=== PATIENT | female | born 1930 | race African-American/Black ===

== ENCOUNTER 2017-01-17 17:35 | Inpatient (IN) | payer MEDICARE ==
[~2017-01-17] VITALS: Ht 165.1 cm; Wt 56.2 kg
[~2017-01-17 17:35] MED LIST: ACET500T68 PO; ACET650S19 PEG; ASPI-482 PO; CEFP200T PO; CEPH-264 PO; CHOL10003 PO; CYAN10005 PO; DIVA125C PO; HYDR-2678 PO; HYDR-971 PO; LEVE250T30 PO; MULT1TAB52 PO; PANT40TA5 PO; POLY17PO5 PO; POTA20TA4 PO; RISP0.2519 PO; SENN8.6T99 PO; SIMV20TA3 PO; VALA500T5 PO
[2017-01-17 18:09] LABS: BILIRUBIN,URINE NEGATIVE (NEG); GLUCOSE,URINE NEGATIVE (NEG); NITRITE,URINE NEGATIVE (NEG); PH,URINE 7.5; PROTEIN,URINE NEGATIVE (NEG-TRACE)
[2017-01-17 18:17] LABS: BACTERIA,URINE MANY /HPF (0-FEW); SQUAMOUS EPITHELIAL CELL,UR MOD /LPF; WBC,URINE >40 /HPF (0-4)
[2017-01-17] MEDS ORDERED: ACETAMINOPHEN 500 MG TABLET PO ONE (18:30)
[2017-01-17] MEDS ORDERED: IV NORMAL SALINE 1000ML BAG 1,000 ML IV ONE (18:30)
[2017-01-17] MEDS ORDERED: ACETAMINOPHEN 650 MG SUPP.RECT. PR ONE (18:30)
[2017-01-17 19:07] LABS: BASO # 0.1 x10^3/uL (0.0-0.2); BASO % 1 % (0-3); EOS % 0 % (0-3); HEMATOCRIT 34.7 % (36.0-47.0); HEMOGLOBIN 11.2 g/dL (12.0-15.5); LYMPH # 1.4 x10^3/uL (1.0-4.8); LYMPH % 11 % (24-48); MEAN CORPUSCULAR HEMOGLOBIN 29 pg (25-35); MEAN CORPUSCULAR HGB CONC 32 g/dL (31-37); MEAN CORPUSCULAR VOLUME 89 fL (79-100); MONO % 3 % (0-9); NEUT % 86 % (31-73); PLATELET COUNT 156 x10^3/uL (140-400); RED BLOOD COUNT 3.91 x10^6/uL (3.50-5.40); RED CELL DISTRIBUTION WIDTH 15.9 % (11.5-14.5); WHITE BLOOD COUNT 12.8 x10^3/uL (4.0-11.0)
[2017-01-17] MEDS ORDERED: CEFTRIAXONE 1GM IVPB FOR OMNI 50 ML IV ONE (19:15)
[2017-01-17 19:24] LABS: CALCIUM 9.1 mg/dL (8.5-10.1); CREATININE 0.7 mg/dL (0.6-1.0); GFR 96.5; POTASSIUM 4.2 mmol/L (3.5-5.1)
[2017-01-17 19:26] LABS: OBC FLU VALID
[2017-01-17] MEDS ORDERED: ONDANSETRON PF 4 MG/2 ML VIAL. IV PRN (19:30)
[2017-01-17] MEDS ORDERED: IV DEXTROSE 5 %-0.2 % NACL 1,000 ML IV ONE (19:30)
[2017-01-17] MEDS ORDERED: VANCOMYCIN 1.5 GM in IV NORMAL SALINE 500ML BAG 500 ML IV ONE (19:30)
[2017-01-17 19:31] LABS: PLT ESTIMATE ADEQUATE (ADEQUATE)
[2017-01-17] MEDS ORDERED: OSELTAMIVIR 75 MG CAPSULE PO ONE (20:00)
[2017-01-17] MEDS: IV DEXTROSE 5 %-0.2 % NACL 1,000 ML IV SCH (22:00)
[2017-01-17] MEDS ORDERED: HYDROCODONE/APAP 5/325MG TABLET. PO PRN (22:00)
--- NOTE | 2017-01-17 22:13 | PHYS DOC ---
Past Medical History Past Medical History: Constipation, Dementia, GERD, Sickle Cell Disease, Other Additional Past Medical Histor: Shingles Past Surgical History: Hip Replacement, Other Additional Past Surgical Histo: Eye sx, gallstones, LT HIP FX Alcohol Use: None Drug Use: None Adult General Chief Complaint Chief Complaint: FEVER HPI HPI 86-year-old female who presents from assisted living facility for fever as well as an episode of tremors noted earlier today by staff. Upon arrival, the patient is febrile with a fever of 101.9. She has been treated for ongoing UTI. Patient is nonverbal at this time and not able to provide any history. She has history of dementia and is is her baseline per family member at bedside. Review of Systems Review of Systems 10 point review of systems unable to be obtained secondary to her baseline mental status Current Medications Current Medications Current Medications Medications (Trade) Dose Ordered Sig/Carolyne Start Time Stop Time Status Last Admin Dose Admin Acetaminophen (Tylenol) 650 mg 1X ONCE 01/17/17 18:30 01/17/17 18:31 DC 01/17/17 18:30 650 MG Acetaminophen 1000 mg 1,000 mg 1X ONCE 01/17/17 18:30 01/17/17 18:31 Cancel Sodium Chloride (Iv Sodium Chloride 0.9% 1000ml Bag) 1,000 ml @ 1,000 mls/hr 1X ONCE 01/17/17 18:30 01/17/17 19:29 DC 01/17/17 18:30 1,000 MLS/HR Allergies Allergies Allergies Coded Allergies Type Severity Reaction Last Updated Verified Penicillins Allergy Intermediate Rash 01/30/16 Yes I S O L A T I O N *CONTACT* Allergy Unknown 08/07/16 Yes Physical Exam Physical Exam Constitutional: Well developed, cachetic, no acute distress, non-toxic appearance. [] HENT: Normocephalic, atraumatic, bilateral external ears normal, oropharynx moist, no oral exudates, nose normal. [] Eyes: PERRLA, EOMI, conjunctiva normal, no discharge. [] Neck: Normal range of motion, no tenderness, supple, no stridor. [] Cardiovascular:Heart rate tachycardic with regular rhythm, no murmur [] Lungs & Thorax: Bilateral breath sounds clear to auscultation [] Abdomen: Bowel sounds normal, soft, no tenderness, no masses, no pulsatile masses. [] Skin: Warm, dry, no erythema, no rash. [] Back: No tenderness, no CVA tenderness. [] Extremities: No tenderness, no cyanosis, no clubbing, ROM intact, no edema. [] Neurologic: Nonverbal, no focal deficits noted. [] Psychologic: Affect normal, judgement normal, mood normal. [] Current Patient Data Vital Signs Vital Signs Date Time Temp Pulse Resp B/P Pulse Ox O2 Delivery O2 Flow Rate FiO2 01/17/17 18:11 101.6 110 24 157/76 91 Room Air 101.6 Lab Values Laboratory Tests Test 01/17/17 17:45 01/17/17 18:50 01/17/17 19:00 Urine Collection Type U cath Urine Color Yellow Urine Clarity Clear Urine pH 7.5 Urine Specific [place] 1.010 Urine Protein Negativemg/dL (NEG-TRACE) Urine Glucose (UA) Negativemg/dL (NEG) Urine Ketones (Stick) Negativemg/dL (NEG) Urine Blood Small (NEG) Urine Nitrite Negative (NEG) Urine Bilirubin Negative (NEG) Urine Urobilinogen Dipstick 1.0mg/dL (0.2 mg/dL) Urine Leukocyte Esterase Large (NEG) Urine RBC 3-5/HPF (0-2) Urine WBC >40/HPF (0-4) Urine Squamous Epithelial Cells Mod/LPF Urine Bacteria Many/HPF (0-FEW) Influenza Type A Antigen Positive (NEGATIVE) Influenza Type B Antigen Negative (NEGATIVE) Lactic Acid Level 1.9mmol/L (0.4-2.0) White Blood Count 12.8x10^3/uL (4.0-11.0) H Red Blood Count 3.91x10^6/uL (3.50-5.40) Hemoglobin 11.2g/dL (12.0-15.5) L Hematocrit 34.7% (36.0-47.0) L Mean Corpuscular Volume 89fL (79-100) Mean Corpuscular Hemoglobin 29pg (25-35) Mean Corpuscular Hemoglobin Concent 32g/dL (31-37) Red Cell Distribution Width 15.9% (11.5-14.5) H Platelet Count 156x10^3/uL (140-400) Neutrophils (%) (Auto) 86% (31-73) H Lymphocytes (%) (Auto) 11% (24-48) L Monocytes (%) (Auto) 3% (0-9) Eosinophils (%) (Auto) 0% (0-3) Basophils (%) (Auto) 1% (0-3) Neutrophils # (Auto) 11.0x10^3uL (1.8-7.7) H Lymphocytes # (Auto) 1.4x10^3/uL (1.0-4.8) Monocytes # (Auto) 0.4x10^3/uL (0.0-1.1) Eosinophils # (Auto) 0.0x10^3/uL (0.0-0.7) Basophils # (Auto) 0.1x10^3/uL (0.0-0.2) Segmented Neutrophils % 71% (35-66) H Band Neutrophils % 20% (0-9) H Lymphocytes % 6% (24-48) L Monocytes % 3% (0-10) Platelet Estimate Adequate (ADEQUATE) Sodium Level 155mmol/L (136-145) H Potassium Level 4.2mmol/L (3.5-5.1) Chloride Level 116mmol/L (98-107) H Carbon Dioxide Level 30mmol/L (21-32) Anion Gap 9 (6-14) Blood Urea Nitrogen 10mg/dL (7-20) Creatinine 0.7mg/dL (0.6-1.0) Estimated GFR (Cockcroft-Gault) 96.5 Glucose Level 109mg/dL (70-99) H Calcium Level 9.1mg/dL (8.5-10.1) Troponin I Quantitative < 0.017ng/mL (0.000-0.055) Laboratory Tests 01/17/17 19:00 Laboratory Tests 01/17/17 19:00 EKG EKG EKG as interpreted by me shows a sinus tachycardia with a rate of 105 bpm. There is artifact seen on this EKG but no obvious ischemic findings seen. Radiology/Procedures Radiology/Procedures There is no obvious acute findings on portable one view of the chest as interpreted by me. There does appear to be some mediastinal widening that was present on previous films as well noted on 11/06/2016 Course & Med Decision Making Course & Med Decision Making Pertinent Labs and Imaging studies reviewed. (See chart for details) This 86-year-old female presented with fever and had a laboratory workup that's consistent with hypernatremia, UTI, and influenza A. Patient was placed on D5 quarter normal saline at 125 mL an hour per the hospitalist recommendation. Patient was additionally given multiple antibiotic doses per Dr. Lock's recommendation. Her influenza swabs are positive for influenza type A. Patient was given a dose of Tamiflu. Her urinalysis showed large amount of leukocyte esterase. She was admitted without incident. Dragon Disclaimer Dragon Disclaimer This electronic medical record was generated, in whole or in part, using a voice recognition dictation system. Departure Departure Impression: Primary Impression: Influenza A virus present Additional Impressions: Fever UTI (urinary tract infection) Disposition: ADMITTED INPATIENT Admitting Physician: Joo Lock Condition: STABLE Problem Qualifiers PRABHA GAMEZ DO Jan 17, 2017 22:13
[2017-01-17] MEDS ORDERED: IPRATRPIUM/ALBUTEROL 0.5/2.5MG 3 ML NEBU. NEB ONE (22:30)
[2017-01-17 23:12] VITALS: BP 145/78
[2017-01-18] MEDS: ACETAMINOPHEN 650 MG/20.3 ML SOLUTION. PEG PRN (00:09)
[2017-01-18] MEDS: ENOXAPARIN 40 MG/0.4 ML DISP.SYRIN. SQ SCH ×2 (00:11→22:23)
[2017-01-18 03:00] VITALS: BP 126/73
[2017-01-18] MEDS ORDERED: NITR100C62 PO (03:30)
[2017-01-18 07:00] VITALS: BP 112/71
[2017-01-18 07:01] LABS: CALCIUM 8.2 mg/dL (8.5-10.1); CREATININE 0.5 mg/dL (0.6-1.0); GFR 142.2; POTASSIUM 3.3 mmol/L (3.5-5.1)
[2017-01-18 07:04] LABS: BASO % 0 % (0-3); EOS % 0 % (0-3); HEMATOCRIT 31.1 % (36.0-47.0); HEMOGLOBIN 9.9 g/dL (12.0-15.5); LYMPH # 1.2 x10^3/uL (1.0-4.8); LYMPH % 8 % (24-48); MEAN CORPUSCULAR HEMOGLOBIN 29 pg (25-35); MEAN CORPUSCULAR HGB CONC 32 g/dL (31-37); MEAN CORPUSCULAR VOLUME 92 fL (79-100); MONO % 3 % (0-9); NEUT % 89 % (31-73); PLATELET COUNT 136 x10^3/uL (140-400); RED BLOOD COUNT 3.38 x10^6/uL (3.50-5.40); RED CELL DISTRIBUTION WIDTH 15.5 % (11.5-14.5); WHITE BLOOD COUNT 16.4 x10^3/uL (4.0-11.0)
[2017-01-18] MEDS: IPRATRPIUM/ALBUTEROL 0.5/2.5MG 3 ML NEBU. NEB SCH ×4 (07:04→18:14)
[2017-01-18] MEDS: IV DEXTROSE 5 %-0.2 % NACL 1,000 ML IV SCH ×2 (08:00→22:22)
--- NOTE | 2017-01-18 08:05 | RAD ---
Portable chest, 01/17/2017: History: Fever Comparison is made to a study from 11/16/2016. The patient is rotated to the right. The heart is within normal limits in size. There is tortuosity of the thoracic aorta. The pulmonary vascularity is normal. There is mild parenchymal scarring. No acute pulmonary infiltrate is seen. There is no evidence of pleural fluid. The bony structures are demineralized. Old healed rib fractures are present, more numerous on the left. There is an old healed left clavicular fracture. IMPRESSION: 1. Aortic ectasia. 2. No acute cardiopulmonary abnormality is detected.
--- NOTE | 2017-01-18 08:54 | EKG ---
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
[2017-01-18] MEDS: OSELTAMIVIR 30 MG CAPSULE PO SCH ×2 (09:21→22:22)
[2017-01-18] MEDS: POLYETHYLENE GLYCOL 3350 17 GM PACKET. PO SCH (09:24)
[2017-01-18] MEDS: DIVALPROEX SPRINKLES 125 MG CAPSULE. PO SCH ×2 (09:26→22:30)
[2017-01-18] MEDS: LEVETIRACETAM 250 MG TABLET. PO SCH ×2 (09:27→22:22)
[2017-01-18] MEDS: ASPIRIN ENTERIC COATED 81 MG TABLET.DR. PO SCH (09:28)
[2017-01-18] MEDS: HYDROCODONE/APAP 5/325MG TABLET. PO SCH ×3 (09:28→21:00)
[2017-01-18] MEDS: PANTOPRAZOLE 40 MG TABLET. PO SCH (09:29)
[2017-01-18] MEDS: CYANOCOBALAMIN (VITAMIN B-12) 1,000 MCG TABLET. PO SCH (09:30)
[2017-01-18] MEDS: MULTIVITAMIN with MINERAL TABLET. PO SCH (09:31)
[2017-01-18] MEDS: CHOLECALCIFEROL (VITAMIN D3) 1,000 UNIT TABLET PO SCH (09:32)
[2017-01-18] MEDS: SENNOSIDES 8.6 MG TABLET PO SCH (09:33)
--- NOTE | 2017-01-18 10:10 | PDOC ---
Provider Note Provider Note H&P dictated. #[id number] VICK KEYS MD Jan 18, 2017 10:09
[2017-01-18] MEDS ORDERED: POTASSIUM CHLORIDE 20 MEQ TABLET.ER. PO ONE ×2 (10:15→15:00)
[2017-01-18 10:53] VITALS: BP 113/71
--- NOTE | 2017-01-18 10:58 | HP ---
ADMIT DATE: 01/17/2017 LOCATION: 430. REASON FOR ADMISSION TO THE HOSPITAL: 1. Fever. 2. Influenza. 3. Hypernatremia. HISTORY OF PRESENT ILLNESS: The patient is an 86-year-old female patient from [facility]. She has a history of chronic dementia and she has been not feeling well yesterday. She has been shaking yesterday and she was sent to the Emergency Room. Fever of 102, influenza A was positive. She also had urinary tract infection, was treated with antibiotics as well as Tamiflu, was admitted to the hospital. Sodium was high at 155, was given IV fluids. PAST MEDICAL HISTORY: She has a history of sickle cell disease, dementia, arthritis, seizures, hypertension and hyperlipidemia. PAST SURGICAL HISTORY: Left hip replacement, shingles, gallstones. ALLERGIES: PENICILLIN. MEDICATIONS: At the senior care, aspirin 81 mg daily, vitamin D 1000 daily, B12 100 mcg daily, Depakote 125 mg twice a day, hydrocodone q. 6, Keppra 250 mg twice a day, multivitamin daily, Protonix 40 mg daily, MiraLax 17 grams daily, senna 8.6 daily. PERSONAL HISTORY: Has been at the senior care for the last 1 year. No history of recent smoking, alcohol or drug abuse. FAMILY HISTORY: Positive for hypertension. REVIEW OF SYSTEMS: The patient has dementia. PHYSICAL EXAMINATION: VITAL SIGNS: Temperature 102, pulse ____, respirations 22, blood pressure 145/76, 97% on 2 liters. HEENT: Head is atraumatic. Pupils equal. Oral cavity: No congestion. Dentures present. NECK: Supple. Thyroid not enlarged. JVD not elevated. CHEST: Symmetrical. CARDIOVASCULAR: S1, S2. LUNGS: Clear to auscultation. ABDOMEN: Soft. Bowel sounds present, no mass palpable. EXTERNAL GENITALIA: No Christie. RECTAL: Deferred. EXTREMITIES: No calf tenderness, no edema. The patient has an ulcer on the left heel, which is stage 2 and 3. She has been following at [facility]. NEUROLOGIC: The patient is awake, dementia, does not respond to verbal questions, moving upper extremities. LABORATORY DATA: White count is 13, hemoglobin 11, platelets 156. Electrolytes show sodium 155, potassium 4.2, chloride 116, bicarb 30, BUN 10, creatinine 0.7. Lactic acid 1.9. Troponin is negative. Urine shows more than 40 wbc's and large leukocyte esterase. Influenza A was positive on serology. Chest x-ray shows no acute abnormality. FINAL IMPRESSION: 1. Fever, possible influenza. 2. Urinary tract infection. 3. Hypernatremia. 4. Dementia. 5. Left heel ulcer stage 3, present on admission. 6. Protein-calorie malnutrition, moderate. 7. History of surgeries including hip fractures. PLAN: At this time, admit to hospital. The patient was started on Tamiflu and Levaquin for UTI. Cultures were sent and also DVT prophylaxis, wound care team to see, hydration with IV fluids, monitor electrolytes. VICK KEYS MD DR: NOAH/robbin JOB#: [id number] / [id number]
[2017-01-18 15:02] VITALS: BP 118/67
[2017-01-18] MEDS ORDERED: CEFTRIAXONE SODIUM 1 GM in IV NORMAL SALINE 50ML 50 ML IV SCH (19:00)
[2017-01-18 19:17] VITALS: BP 109/57
--- NOTE | 2017-01-18 21:48 | ACF ---
Admission Forms Criteria URINARY COMPLICATIONS Clinical Indications for Inpatient Care (Place 'X' for any and all applicable criteria): Ongoing inpatient care may be indicated for urinary complications with ANY ONE of the following: [X]I. Urinary tract infection requiring inpatient care as indicated by ANY ONE of the following(8)(19)(20): [ ]a) Severe symptoms (eg, high fever, severe pain) [ ]b) Vomiting or dehydration requiring ongoing inpatient care [X]c) IV antibiotic needs that cannot be managed at lower level of care [ ]d) Hemodynamic instability [ ]e) Obstruction of collecting system by stone or tumor [ ]II. Urinary retention requiring drainage or surgery (3)(4)(5)(17)(18) [ ]III. Renal failure (Use Renal Failure Criteria for further information.) [ ]IV. Oliguria(30) [ ]V. Post obstructive diuresis requiring close monitoring of urine output and intravenous compensation for excessive fluid losses(33) Extended stay beyond goal length of stay for primary condition may be needed until ALL of the following are present(3)(4)(5)(8): [ ]a) Renal function (creatinine) at baseline, or daily decreases in creatinine consistent with renal function return [ ]b) Voiding adequately or with urinary catheter or percutaneous suprapubic tube and management regimen in place that is performable at lower level of care. [ ]c) Urine output adequate [ ]d) Fever absent or resolving [ ]e) Infection absent or treatable at next level of care The original [employer] content created by [employer] has been revised. The portions of the content which have been revised are identified through the use of italic text or in bold, and [facility] has neither reviewed nor approved the modified material. All other unmodified content is copyright [email or web address] Please see references footnoted in the original [facility] edition 2016 Admission Criteria Met?: Yes AMANDA SHEIKH Jan 18, 2017 21:48
[2017-01-18 23:10] VITALS: BP 98/54
[2017-01-19 03:07] VITALS: BP 122/71
[2017-01-19] MEDS: ACETAMINOPHEN 650 MG/20.3 ML SOLUTION. PEG PRN (03:52)
[2017-01-19] MEDS: IV DEXTROSE 5 %-0.2 % NACL 1,000 ML IV SCH ×2 (03:57→14:00)
[2017-01-19 06:17] LABS: BASO % 0 % (0-3); EOS % 1 % (0-3); HEMATOCRIT 25.8 % (36.0-47.0); HEMOGLOBIN 8.5 g/dL (12.0-15.5); LYMPH # 1.3 x10^3/uL (1.0-4.8); LYMPH % 16 % (24-48); MEAN CORPUSCULAR HEMOGLOBIN 29 pg (25-35); MEAN CORPUSCULAR HGB CONC 33 g/dL (31-37); MEAN CORPUSCULAR VOLUME 89 fL (79-100); MONO % 5 % (0-9); NEUT % 78 % (31-73); PLATELET COUNT 117 x10^3/uL (140-400); RED BLOOD COUNT 2.89 x10^6/uL (3.50-5.40); RED CELL DISTRIBUTION WIDTH 15.5 % (11.5-14.5)
[2017-01-19 06:44] LABS: ALBUMIN/GLOBULIN RATIO 0.7 (1.0-1.7); ALK PHOS 135 U/L (46-116); ALT (SGPT) 19 U/L (14-59); ANION GAP 7 (6-14); AST (SGOT) 6 U/L (15-37); BLOOD UREA NITROGEN 9 mg/dL (7-20); BUN/CREATININE RATIO 15 (6-20); CALCIUM 8.3 mg/dL (8.5-10.1); CARBON DIOXIDE 27 mmol/L (21-32); CHLORIDE 113 mmol/L (98-107); CREATININE 0.6 mg/dL (0.6-1.0); GFR 115.2; GLUCOSE 112 mg/dL (70-99); POTASSIUM 3.9 mmol/L (3.5-5.1); SODIUM 147 mmol/L (136-145); TOTAL BILIRUBIN 0.3 mg/dL (0.2-1.0)
[2017-01-19 07:00] VITALS: BP 119/70
[2017-01-19] MEDS: IPRATRPIUM/ALBUTEROL 0.5/2.5MG 3 ML NEBU. NEB SCH ×4 (07:18→18:13)
[2017-01-19] MEDS: OSELTAMIVIR 30 MG CAPSULE PO SCH ×2 (09:19→21:25)
[2017-01-19] MEDS: POLYETHYLENE GLYCOL 3350 17 GM PACKET. PO SCH (09:20)
[2017-01-19] MEDS: DIVALPROEX SPRINKLES 125 MG CAPSULE. PO SCH ×2 (09:22→21:24)
[2017-01-19] MEDS: LEVETIRACETAM 250 MG TABLET. PO SCH ×2 (09:23→21:24)
[2017-01-19] MEDS: HYDROCODONE/APAP 5/325MG TABLET. PO SCH ×3 (09:24→21:24)
[2017-01-19] MEDS: SENNOSIDES 8.6 MG TABLET PO SCH (09:25)
[2017-01-19] MEDS: CHOLECALCIFEROL (VITAMIN D3) 1,000 UNIT TABLET PO SCH (09:26)
[2017-01-19] MEDS: CYANOCOBALAMIN (VITAMIN B-12) 1,000 MCG TABLET. PO SCH (09:26)
[2017-01-19] MEDS: ASPIRIN ENTERIC COATED 81 MG TABLET.DR. PO SCH (09:27)
[2017-01-19] MEDS: PANTOPRAZOLE 40 MG TABLET. PO SCH (09:27)
[2017-01-19] MEDS: MULTIVITAMIN with MINERAL TABLET. PO SCH (09:28)
--- NOTE | 2017-01-19 10:07 | PDOC ---
PROGRESS NOTES Subjective Subjective pt more awake and talking Objective Objective Vital Signs Date Time Temp Pulse Resp B/P Pulse Ox O2 Delivery O2 Flow Rate FiO2 01/19/17 09:24 16 Nasal Cannula 2.0 01/19/17 07:19 99 01/19/17 07:00 99.3 82 119/70 99.3 Physical Exam Abdomen: Normal bowel sounds, Soft Heart: Regular rate, Normal S1 Extremities: No clubbing General: No acute distress HEENT: Atraumatic Lungs: Normal air movement MUSCULOSKELETAL: No deformity Neck: No thyromegaly Psych/Mental Status: Mood NL Diagnosis Problem List Problems Medical Problems: (1) Fever Status: Acute (2) Hypernatremia Status: Acute (3) Influenza A virus present Status: Acute (4) UTI (urinary tract infection) Status: Acute Assessment Assessment Problems Medical Problems: (1) Fever Status: Acute (2) Hypernatremia Status: Acute (3) Influenza A virus present Status: Acute (4) UTI (urinary tract infection) Status: Acute FINAL IMPRESSION: 1. Fever, due to influenza. 2. Urinary tract infection.urine c/s pending 3. Hypernatremia.Na 155 4. Dementia. 5. Left heel ulcer stage 3, present on admission. 6. Protein-calorie malnutrition, moderate. 7. History of surgeries including hip fractures. PLAN: pt improving . Na 147 improving with hydration. levaquin for uti. tamiflu for influenza. wound care consult for heal ulcer. At this time, admit to hospital. The patient was started on Tamiflu and Levaquin for UTI. Cultures were sent and also DVT prophylaxis, wound care team to see, hydration with IV fluids, monitor electrolytes. Problems: Plan Plan of Care Problems Medical Problems: (1) Fever Status: Acute (2) Hypernatremia Status: Acute (3) Influenza A virus present Status: Acute (4) UTI (urinary tract infection) Status: Acute Comment Review of Relevant I have reviewed the following items elli (where applicable) has been applied. Labs Laboratory Tests Test 01/19/17 04:45 White Blood Count 8.0x10^3/uL (4.0-11.0) Red Blood Count 2.89x10^6/uL (3.50-5.40) Hemoglobin 8.5g/dL (12.0-15.5) Hematocrit 25.8% (36.0-47.0) Mean Corpuscular Volume 89fL (79-100) Mean Corpuscular Hemoglobin 29pg (25-35) Mean Corpuscular Hemoglobin Concent 33g/dL (31-37) Red Cell Distribution Width 15.5% (11.5-14.5) Platelet Count 117x10^3/uL (140-400) Neutrophils (%) (Auto) 78% (31-73) Lymphocytes (%) (Auto) 16% (24-48) Monocytes (%) (Auto) 5% (0-9) Eosinophils (%) (Auto) 1% (0-3) Basophils (%) (Auto) 0% (0-3) Neutrophils # (Auto) 6.2x10^3uL (1.8-7.7) Lymphocytes # (Auto) 1.3x10^3/uL (1.0-4.8) Monocytes # (Auto) 0.4x10^3/uL (0.0-1.1) Eosinophils # (Auto) 0.1x10^3/uL (0.0-0.7) Basophils # (Auto) 0.0x10^3/uL (0.0-0.2) Sodium Level 147mmol/L (136-145) Potassium Level 3.9mmol/L (3.5-5.1) Chloride Level 113mmol/L (98-107) Carbon Dioxide Level 27mmol/L (21-32) Anion Gap 7 (6-14) Blood Urea Nitrogen 9mg/dL (7-20) Creatinine 0.6mg/dL (0.6-1.0) Estimated GFR (Cockcroft-Gault) 115.2 BUN/Creatinine Ratio 15 (6-20) Glucose Level 112mg/dL (70-99) Calcium Level 8.3mg/dL (8.5-10.1) Total Bilirubin 0.3mg/dL (0.2-1.0) Aspartate Amino Transf (AST/SGOT) 6U/L (15-37) Alanine Aminotransferase (ALT/SGPT) 19U/L (14-59) Alkaline Phosphatase 135U/L (46-116) Total Protein 5.0g/dL (6.4-8.2) Albumin 2.0g/dL (3.4-5.0) Albumin/Globulin Ratio 0.7 (1.0-1.7) Valproic Acid (Depakene) Level 22mcg/mL (50-100) Valproic Acid Last Dose Date 01/18/17 Valproic Acid Last Dose Time 1800 Microbiology 01/17/17 Blood Culture - Preliminary, Resulted NO GROWTH AFTER 1 DAY 01/17/17 Urine Culture - Preliminary, Resulted 01/17/17 Urine Culture Result 1 (KWAME) - Preliminary, Resulted Medications Current Medications Ceftriaxone Sodium 1 gm/ Sodium Chloride 50 ml @ 100 mls/hr Q24H IV ; Start at 19:00; Stop 01/18/17 at 19:00; Status DC Levofloxacin/ Dextrose (LEVAQUIN 250mg PREMIX) 50 ml @ 50 mls/hr Q24H IV Last administered on 01/18/17 22:22; Start 01/18/17 at 22:00 Potassium Chloride (Klor-Con) 40 meq 1X ONCE PO ; Start 01/18/17 at 10:15; Stop 01/18/17 at 10:16; Status Cancel Potassium Chloride (Klor-Con) 40 meq 1X ONCE PO Last administered on 17:20; Start 01/18/17 at 15:00; Stop 01/18/17 at 15:01; Status DC Vitals/I & O Vital Sign - Last 24 Hours 01/18/17 01/18/17 01/18/17 01/18/17 10:28 10:53 11:26 14:00 Temp 99.9 99.9 Pulse 88 Resp 16 16 18 B/P 113/71 Pulse Ox 94 O2 Delivery Nasal Cannula Nasal Cannula Nasal Cannula Nasal Cannula O2 Flow Rate 2.0 1.0 1.0 2.0 01/18/17 01/18/17 01/18/17 01/18/17 15:02 15:05 18:15 19:17 Temp 99.5 99.4 99.5 99.4 Pulse 88 87 Resp 18 18 B/P 118/67 109/57 Pulse Ox 100 99 99 O2 Delivery Nasal Cannula Nasal Cannula Nasal Cannula Nasal Cannula O2 Flow Rate 1.0 1.0 1.0 2.0 01/18/17 01/18/17 01/19/17 01/19/17 20:00 23:10 03:07 07:00 Temp 99.1 100.4 99.3 99.1 100.4 99.3 Pulse 84 88 82 Resp 18 18 18 B/P 98/54 122/71 119/70 Pulse Ox 100 99 99 O2 Delivery Room Air Nasal Cannula Nasal Cannula Nasal Cannula O2 Flow Rate 1.0 2.0 2.0 01/19/17 01/19/17 07:19 09:24 Resp 16 Pulse Ox 99 O2 Delivery Nasal Cannula Nasal Cannula O2 Flow Rate 1.0 2.0 VICK KEYS MD Jan 19, 2017 10:07
[2017-01-19 11:00] VITALS: BP 104/61
[2017-01-19 16:00] VITALS: BP 93/63
[2017-01-19 19:00] VITALS: BP 103/65
[2017-01-19] MEDS: LEVOFLOXACIN 250 MG TABLET. PO SCH (21:24)
[2017-01-19] MEDS: ENOXAPARIN 40 MG/0.4 ML DISP.SYRIN. SQ SCH (21:25)
[2017-01-19 23:00] VITALS: BP 96/58
[2017-01-20] MEDS: IV DEXTROSE 5 %-0.2 % NACL 1,000 ML IV SCH ×2 (00:26→03:46)
[2017-01-20 03:00] VITALS: BP 129/57
[2017-01-20 05:03] LABS: BASO % 0 % (0-3); EOS % 2 % (0-3); HEMATOCRIT 26.6 % (36.0-47.0); HEMOGLOBIN 8.7 g/dL (12.0-15.5); LYMPH # 1.3 x10^3/uL (1.0-4.8); LYMPH % 25 % (24-48); MEAN CORPUSCULAR HEMOGLOBIN 29 pg (25-35); MEAN CORPUSCULAR HGB CONC 33 g/dL (31-37); MEAN CORPUSCULAR VOLUME 90 fL (79-100); MONO % 6 % (0-9); NEUT % 68 % (31-73); PLATELET COUNT 122 x10^3/uL (140-400); RED BLOOD COUNT 2.97 x10^6/uL (3.50-5.40); RED CELL DISTRIBUTION WIDTH 15.5 % (11.5-14.5); WHITE BLOOD COUNT 5.4 x10^3/uL (4.0-11.0)
[2017-01-20 05:37] LABS: CALCIUM 8.8 mg/dL (8.5-10.1); CREATININE 0.5 mg/dL (0.6-1.0); GFR 142.2; POTASSIUM 4.5 mmol/L (3.5-5.1)
[2017-01-20] MEDS: IPRATRPIUM/ALBUTEROL 0.5/2.5MG 3 ML NEBU. NEB SCH ×4 (07:07→20:17)
[2017-01-20 07:59] VITALS: BP 108/67
[2017-01-20] MEDS: POLYETHYLENE GLYCOL 3350 17 GM PACKET. PO SCH (09:11)
[2017-01-20] MEDS: MULTIVITAMIN with MINERAL TABLET. PO SCH (09:12)
[2017-01-20] MEDS: SENNOSIDES 8.6 MG TABLET PO SCH (09:12)
[2017-01-20] MEDS: CHOLECALCIFEROL (VITAMIN D3) 1,000 UNIT TABLET PO SCH (09:12)
[2017-01-20] MEDS: CYANOCOBALAMIN (VITAMIN B-12) 1,000 MCG TABLET. PO SCH (09:12)
[2017-01-20] MEDS: HYDROCODONE/APAP 5/325MG TABLET. PO SCH ×3 (09:12→21:31)
[2017-01-20] MEDS: DIVALPROEX SPRINKLES 125 MG CAPSULE. PO SCH ×2 (09:12→21:29)
[2017-01-20] MEDS: ASPIRIN ENTERIC COATED 81 MG TABLET.DR. PO SCH (09:12)
[2017-01-20] MEDS: PANTOPRAZOLE 40 MG TABLET. PO SCH (09:12)
[2017-01-20] MEDS: OSELTAMIVIR 30 MG CAPSULE PO SCH ×2 (09:12→21:30)
[2017-01-20] MEDS: LEVETIRACETAM 250 MG TABLET. PO SCH ×2 (09:12→21:31)
--- NOTE | 2017-01-20 09:36 | PDOC ---
PROGRESS NOTES Subjective Subjective EATING BETTER Objective Objective Vital Signs Date Time Temp Pulse Resp B/P Pulse Ox O2 Delivery O2 Flow Rate FiO2 01/20/17 09:12 18 Nasal Cannula 2.0 01/20/17 07:59 100.0 83 108/67 97 100.0 Intake and Output 01/20/17 07:00 Intake Total 1650 ml Balance 1650 ml Intake Oral 1650 ml # Voids 11 Physical Exam Abdomen: Normal bowel sounds, Soft Heart: Regular rate, Normal S1 Extremities: No clubbing General: No acute distress HEENT: Atraumatic Lungs: Normal air movement MUSCULOSKELETAL: No deformity Neck: No thyromegaly Psych/Mental Status: Mood NL Diagnosis Problem List Problems Medical Problems: (1) Fever Status: Acute (2) Hypernatremia Status: Acute (3) Influenza A virus present Status: Acute (4) UTI (urinary tract infection) Status: Acute Assessment Assessment Problems Medical Problems: (1) Fever Status: Acute (2) Hypernatremia Status: Acute (3) Influenza A virus present Status: Acute (4) UTI (urinary tract infection) Status: Acute FINAL IMPRESSION: 1. Fever, due to influenza. 2. Urinary tract infection. 3. Hypernatremia.Na 155 4. Dementia. 5. Left heel ulcer stage 3, present on admission. 6. Protein-calorie malnutrition, moderate. 7. History of surgeries including hip fractures. PLAN: d/c iv fluids pt improving . Na 146 improving with hydration. c/s neg for uti. tamiflu for influenza. wound care consult for heal ulcer. d/c back to [place] tomorrow. At this time, admit to hospital. The patient was started on Tamiflu and Levaquin for UTI. Cultures were sent and also DVT prophylaxis, wound care team to see, hydration with IV fluids, monitor electrolytes. Problems: Plan Plan of Care Problems Medical Problems: (1) Fever Status: Acute (2) Hypernatremia Status: Acute (3) Influenza A virus present Status: Acute (4) UTI (urinary tract infection) Status: Acute Comment Review of Relevant I have reviewed the following items elli (where applicable) has been applied. Labs Laboratory Tests Test 01/20/17 04:20 01/20/17 04:25 White Blood Count 5.4x10^3/uL (4.0-11.0) Red Blood Count 2.97x10^6/uL (3.50-5.40) Hemoglobin 8.7g/dL (12.0-15.5) Hematocrit 26.6% (36.0-47.0) Mean Corpuscular Volume 90fL (79-100) Mean Corpuscular Hemoglobin 29pg (25-35) Mean Corpuscular Hemoglobin Concent 33g/dL (31-37) Red Cell Distribution Width 15.5% (11.5-14.5) Platelet Count 122x10^3/uL (140-400) Neutrophils (%) (Auto) 68% (31-73) Lymphocytes (%) (Auto) 25% (24-48) Monocytes (%) (Auto) 6% (0-9) Eosinophils (%) (Auto) 2% (0-3) Basophils (%) (Auto) 0% (0-3) Neutrophils # (Auto) 3.6x10^3uL (1.8-7.7) Lymphocytes # (Auto) 1.3x10^3/uL (1.0-4.8) Monocytes # (Auto) 0.3x10^3/uL (0.0-1.1) Eosinophils # (Auto) 0.1x10^3/uL (0.0-0.7) Basophils # (Auto) 0.0x10^3/uL (0.0-0.2) Sodium Level 146mmol/L (136-145) Potassium Level 4.5mmol/L (3.5-5.1) Chloride Level 111mmol/L (98-107) Carbon Dioxide Level 30mmol/L (21-32) Anion Gap 5 (6-14) Blood Urea Nitrogen 9mg/dL (7-20) Creatinine 0.5mg/dL (0.6-1.0) Estimated GFR (Cockcroft-Gault) 142.2 Glucose Level 93mg/dL (70-99) Calcium Level 8.8mg/dL (8.5-10.1) Microbiology 01/17/17 Blood Culture - Preliminary, Resulted NO GROWTH AFTER 2 DAYS 01/17/17 Urine Culture - Preliminary, Resulted 01/17/17 Urine Culture Result 1 ([facility]) - Preliminary, Resulted Medications Current Medications Levofloxacin (Levaquin) 250 mg QHS PO Last administered on 01/19/17t 21:24; Start 01/19/17 at 21:00 Vitals/I & O Vital Sign - Last 24 Hours 01/19/17 01/19/17 01/19/17 01/19/17 11:00 11:07 14:00 15:33 Temp 99.0 99.0 Pulse 87 Resp 16 16 B/P 104/61 Pulse Ox 100 100 100 O2 Delivery Nasal Cannula Nasal Cannula Nasal Cannula Nasal Cannula O2 Flow Rate 2.0 1.0 2.0 1.0 01/19/17 01/19/17 01/19/17 01/19/17 16:00 18:14 19:00 20:00 Temp 99.0 98.6 99.0 98.6 Pulse 77 87 Resp 18 18 B/P 93/63 103/65 Pulse Ox 99 99 O2 Delivery Nasal Cannula Nasal Cannula Nasal Cannula Nasal Cannula O2 Flow Rate 2.0 1.0 2.0 2.0 01/19/17 01/19/17 01/19/17 01/20/17 21:24 22:25 23:00 03:00 Temp 98.7 98.1 98.7 98.1 Pulse 83 78 Resp 20 20 18 18 B/P 96/58 129/57 Pulse Ox 99 100 100 98 O2 Delivery Nasal Cannula Room Air Nasal Cannula Nasal Cannula O2 Flow Rate 2.0 2.0 2.0 2.0 01/20/17 01/20/17 01/20/17 07:08 07:59 09:12 Temp 100.0 100.0 Pulse 83 Resp 18 18 B/P 108/67 Pulse Ox 100 97 O2 Delivery Nasal Cannula Nasal Cannula Nasal Cannula O2 Flow Rate 2.0 2.0 Intake and Output 01/19/17 01/19/17 01/20/17 15:00 23:00 07:00 Intake Total 1650 ml 0 ml Balance 1650 ml 0 ml VICK KEYS MD Jan 20, 2017 09:36
[2017-01-20 11:15] VITALS: BP 91/67
[2017-01-20 14:40] VITALS: BP 110/64
[2017-01-20 19:12] VITALS: BP 137/81
[2017-01-20] MEDS: LEVOFLOXACIN 250 MG TABLET. PO SCH (21:31)
[2017-01-20] MEDS: ENOXAPARIN 40 MG/0.4 ML DISP.SYRIN. SQ SCH (21:39)
[2017-01-20 23:12] VITALS: BP 137/77
[2017-01-21] MEDS: ACETAMINOPHEN 650 MG/20.3 ML SOLUTION. PEG PRN (01:49)
[2017-01-21 03:13] VITALS: BP 158/71
[2017-01-21 07:00] VITALS: BP 142/79
[2017-01-21] MEDS: IPRATRPIUM/ALBUTEROL 0.5/2.5MG 3 ML NEBU. NEB SCH ×2 (07:21→11:14)
[2017-01-21] MEDS: POLYETHYLENE GLYCOL 3350 17 GM PACKET. PO SCH (09:31)
[2017-01-21] MEDS: CYANOCOBALAMIN (VITAMIN B-12) 1,000 MCG TABLET. PO SCH (09:32)
[2017-01-21] MEDS: OSELTAMIVIR 30 MG CAPSULE PO SCH (09:45)
[2017-01-21] MEDS: MULTIVITAMIN with MINERAL TABLET. PO SCH (09:45)
[2017-01-21] MEDS: ASPIRIN ENTERIC COATED 81 MG TABLET.DR. PO SCH (09:45)
[2017-01-21] MEDS: PANTOPRAZOLE 40 MG TABLET. PO SCH (09:45)
[2017-01-21] MEDS: SENNOSIDES 8.6 MG TABLET PO SCH (09:46)
[2017-01-21] MEDS: DIVALPROEX SPRINKLES 125 MG CAPSULE. PO SCH (09:46)
[2017-01-21] MEDS: HYDROCODONE/APAP 5/325MG TABLET. PO SCH ×2 (09:46→13:39)
[2017-01-21] MEDS: CHOLECALCIFEROL (VITAMIN D3) 1,000 UNIT TABLET PO SCH (09:50)
[2017-01-21] MEDS: LEVETIRACETAM 250 MG TABLET. PO SCH (09:50)
--- NOTE | 2017-01-21 10:06 | PDOC ---
PROGRESS NOTES Subjective Subjective feels better ,eating well Objective Objective Vital Signs Date Time Temp Pulse Resp B/P Pulse Ox O2 Delivery O2 Flow Rate FiO2 01/21/17 07:23 100 Room Air 01/21/17 07:00 99.9 83 16 142/79 99.9 01/20/17 14:00 2.0 Intake and Output 01/21/17 07:00 Intake Total 475 ml Balance 475 ml Intake Oral 475 ml # Voids 8 Physical Exam Abdomen: Normal bowel sounds, Soft Heart: Regular rate, Normal S1 Extremities: No clubbing General: No acute distress HEENT: Atraumatic Lungs: Normal air movement MUSCULOSKELETAL: No deformity Neck: No thyromegaly Psych/Mental Status: Mood NL Skin: Other (lt heal ulcer stage 3 POA) Diagnosis Problem List Problems Medical Problems: (1) Fever Status: Acute (2) Hypernatremia Status: Acute (3) Influenza A virus present Status: Acute (4) UTI (urinary tract infection) Status: Acute Assessment Assessment Problems Medical Problems: (1) Fever Status: Acute (2) Hypernatremia Status: Acute (3) Influenza A virus present Status: Acute (4) UTI (urinary tract infection) Status: Acute FINAL IMPRESSION: 1. Fever, due to influenza. 2. Urinary tract infection. 3. Hypernatremia.Na 155 4. Dementia. 5. Left heel ulcer stage 3, present on admission. 6. Protein-calorie malnutrition, moderate. 7. History of surgeries including hip fractures. PLAN: d/c to NH today pt improving . Na 146 improving with hydration. c/s neg for uti. tamiflu for influenza. wound care consult for heal ulcer. At this time, admit to hospital. The patient was started on Tamiflu and Levaquin for UTI. Cultures were sent and also DVT prophylaxis, wound care team to see, hydration with IV fluids, monitor electrolytes. Problems: Plan Plan of Care Problems Medical Problems: (1) Fever Status: Acute (2) Hypernatremia Status: Acute (3) Influenza A virus present Status: Acute (4) UTI (urinary tract infection) Status: Acute Comment Review of Relevant I have reviewed the following items elli (where applicable) has been applied. Labs Microbiology 01/17/17 Blood Culture - Preliminary, Resulted NO GROWTH AFTER 3 DAYS 01/17/17 Urine Culture - Preliminary, Resulted 01/17/17 Urine Culture Result 1 ([facility]) - Preliminary, Resulted 01/17/17 Urine Culture Result 2 ([facility]) - Preliminary, Resulted 01/17/17 Urine Culture Result 3 ([facility]) - Preliminary, Resulted Vitals/I & O Vital Sign - Last 24 Hours 01/20/17 01/20/17 01/20/17 01/20/17 10:12 10:46 11:15 14:00 Temp 98.6 98.6 Pulse 81 Resp 16 B/P 91/67 Pulse Ox 99 99 O2 Delivery Nasal Cannula Nasal Cannula Nasal Cannula O2 Flow Rate 2.0 1.0 2.0 01/20/17 01/20/17 01/20/17 01/20/17 14:40 14:51 19:12 19:52 Temp 99.0 98.6 99.0 98.6 Pulse 80 83 Resp 18 B/P 110/64 137/81 Pulse Ox 95 96 96 O2 Delivery Room Air Room Air Room Air Room Air 01/20/17 01/20/17 01/20/17 01/20/17 20:18 21:31 22:35 23:12 Temp 99.6 99.6 Pulse 84 Resp 18 B/P 137/77 Pulse Ox 98 98 98 98 O2 Delivery Room Air Room Air Room Air Room Air 01/21/17 01/21/17 01/21/17 03:13 07:00 07:23 Temp 99.1 99.9 99.1 99.9 Pulse 82 83 Resp 16 B/P 158/71 142/79 Pulse Ox 98 94 100 O2 Delivery Room Air Room Air Intake and Output 01/20/17 01/20/17 01/21/17 15:00 23:00 07:00 Intake Total 475 ml Balance 475 ml VICK KEYS MD Jan 21, 2017 10:06
--- NOTE | 2017-01-21 10:23 | PDOC ---
Provider Note Provider Note Discharge summary dictated. #[id number] VICK KEYS MD Jan 21, 2017 10:23
[2017-01-21 11:00] VITALS: BP 153/75
--- NOTE | 2017-01-21 20:23 | DS ---
DATE OF DISCHARGE: 01/21/2017 REASON FOR ADMISSION TO THE HOSPITAL: Fever, influenza. CONSULTATIONS: None. PROCEDURES: None. HOSPITAL COURSE: The patient is an 86-year-old female from senior care, has dementia, had a fever, was sent to the Emergency Room, influenza was positive, was put on Tamiflu. Her sodium was also high 155, was given IV fluids and came down to 146. She was feeling better and eating better. She also has a stage III wound on the left heel, has been following [facility] and she has been discharged back to the senior care. FINAL DIAGNOSES: 1. Influenza A positive. 2. Hypernatremia. 3. Chronic nonhealing left heel ulcer, stage III, present on admission. 4. Dementia, Alzheimer's. DISPOSITION: Back to the senior care. DISCHARGE MEDICATIONS: See MRAD for discharge medications. Follow up at the wound care center for follow up on the left heel ulcer. VICK KEYS MD DR: NOAH/robbin JOB#: [id number] / [id number]
== END 2017-01-21 15:30 | DRG 689 ==
LOC: ER 17:35 → 4 NORTH 19:03
PROVIDERS: ADMIT Internal Medicine; ATTEND Internal Medicine
DX: N39.0 Urinary tract infection, site not specified (principal); L89.623 Pressure ulcer of left heel, stage 3; E44.0 Moderate protein-calorie malnutrition; E87.0 Hyperosmolality and hypernatremia; J11.1 Influenza due to unidentified influenza virus with other respiratory manifestations; D57.1 Sickle-cell disease without crisis; E78.5 Hyperlipidemia, unspecified; F02.80 Dementia in other diseases classified elsewhere, unspecified severity, without behavioral disturbance, psychotic disturbance, mood disturbance, and anxiety; G30.9 Alzheimer's disease, unspecified; I10 Essential (primary) hypertension; K21.9 Gastro-esophageal reflux disease without esophagitis; Z96.642 Presence of left artificial hip joint; K59.00 Constipation, unspecified; M19.90 Unspecified osteoarthritis, unspecified site; Z68.20 Body mass index [BMI] 20.0-20.9, adult; Z88.0 Allergy status to penicillin; Z82.49 Family history of ischemic heart disease and other diseases of the circulatory system; Z79.899 Other long term (current) drug therapy
CPT/HCPCS: 36415; 71010; 80048; 80053; 80164; 81001; 83605; 84484; 85007; 85027; 87040; 87086; 87186; 87641; 87804; 93005; 94250; 94640; 94760; 96361; 96365; 96375; J0690; J1650; J1956; J3370; J7030; J7040; J7620; 99285-25

== ENCOUNTER 2017-02-10 13:24 | Emergency (ER) | payer MEDICARE ==
[~2017-02-10 13:24] MED LIST changes: +NITR100C62 PO
[2017-02-10 14:11] LABS: BASO # 0.1 x10^3/uL (0.0-0.2); BASO % 1 % (0-3); EOS % 0 % (0-3); HEMATOCRIT 33.2 % (36.0-47.0); HEMOGLOBIN 11.2 g/dL (12.0-15.5); LYMPH % 21 % (24-48); MEAN CORPUSCULAR HEMOGLOBIN 30 pg (25-35); MEAN CORPUSCULAR HGB CONC 34 g/dL (31-37); MEAN CORPUSCULAR VOLUME 90 fL (79-100); MONO % 6 % (0-9); NEUT % 72 % (31-73); PLATELET COUNT 203 x10^3/uL (140-400); RED BLOOD COUNT 3.71 x10^6/uL (3.50-5.40); RED CELL DISTRIBUTION WIDTH 15.8 % (11.5-14.5); WHITE BLOOD COUNT 9.5 x10^3/uL (4.0-11.0)
[2017-02-10 14:44] LABS: CALCIUM 9.2 mg/dL (8.5-10.1); CREATININE 0.6 mg/dL (0.6-1.0); GFR 115.2; POTASSIUM 4.3 mmol/L (3.5-5.1)
[2017-02-10 15:19] LABS: BILIRUBIN,URINE NEGATIVE (NEG); GLUCOSE,URINE NEGATIVE (NEG); NITRITE,URINE NEGATIVE (NEG); PH,URINE 7.5; PROTEIN,URINE NEGATIVE (NEG-TRACE)
[2017-02-10 15:34] LABS: BACTERIA,URINE 0 /HPF (0-FEW); SQUAMOUS EPITHELIAL CELL,UR MANY /LPF; WBC,URINE 0 /HPF (0-4)
--- NOTE | 2017-02-10 18:35 | PHYS DOC ---
Past Medical History Past Medical History: Constipation, Dementia, GERD, Sickle Cell Disease, UTI, Other Additional Past Medical Histor: Shingles, CHRONIC PAIN, FTT, LYMPHEDEMA Past Surgical History: Hip Replacement, Other Additional Past Surgical Histo: Eye sx, gallstones, LT HIP FX Alcohol Use: None Drug Use: None Adult General Chief Complaint Chief Complaint: OTHER COMPLAINTS HPI HPI Patient is a 86 year old female who presents by EMS with son for decreased oral intake and vomiting after meals. He states she has normal mental status otherwise. She has no spontaneous emesis. He states she is otherwise able to take her medications. He has no concerns about urine or bowel habits. Review of Systems Review of Systems Unable to obtain secondary to mental status Allergies Allergies Allergies Coded Allergies Type Severity Reaction Last Updated Verified Penicillins Allergy Intermediate Rash 01/30/16 Yes Physical Exam Physical Exam Constitutional: Well developed, thin, no acute distress, non-toxic appearance. [ ] HENT: Normocephalic, atraumatic, bilateral external ears normal, oropharynx moist, no oral exudates, nose normal. [] Eyes: PERRLA, EOMI, conjunctiva normal, no discharge. [] Neck: Normal range of motion, no tenderness, supple, no stridor. [] Cardiovascular:Heart rate regular rhythm [] Lungs & Thorax: Bilateral breath sounds clear to auscultation [] Abdomen: Bowel sounds normal, soft, no tenderness. [] Skin: Warm, dry, no erythema, no rash. [] Back: No tenderness, no CVA tenderness. [] Extremities: ROM intact, no edema. [] Neurologic: Eyes are open and she looks around the room, makes spontaneous purposeful movements of upper extremities, nonverbal. [] Psychologic: Unable to assess secondary to mental status. [] Current Patient Data Vital Signs Vital Signs Date Time Temp Pulse Resp B/P Pulse Ox O2 Delivery O2 Flow Rate FiO2 02/10/17 19:30 96 16 114/63 97 Room Air 02/10/17 13:24 98.8 98.8 Lab Values Laboratory Tests Test 02/10/17 13:40 02/10/17 15:10 White Blood Count 9.5x10^3/uL (4.0-11.0) Red Blood Count 3.71x10^6/uL (3.50-5.40) Hemoglobin 11.2g/dL (12.0-15.5) L Hematocrit 33.2% (36.0-47.0) L Mean Corpuscular Volume 90fL (79-100) Mean Corpuscular Hemoglobin 30pg (25-35) Mean Corpuscular Hemoglobin Concent 34g/dL (31-37) Red Cell Distribution Width 15.8% (11.5-14.5) H Platelet Count 203x10^3/uL (140-400) Neutrophils (%) (Auto) 72% (31-73) Lymphocytes (%) (Auto) 21% (24-48) L Monocytes (%) (Auto) 6% (0-9) Eosinophils (%) (Auto) 0% (0-3) Basophils (%) (Auto) 1% (0-3) Neutrophils # (Auto) 6.8x10^3uL (1.8-7.7) Lymphocytes # (Auto) 2.0x10^3/uL (1.0-4.8) Monocytes # (Auto) 0.6x10^3/uL (0.0-1.1) Eosinophils # (Auto) 0.0x10^3/uL (0.0-0.7) Basophils # (Auto) 0.1x10^3/uL (0.0-0.2) Sodium Level 144mmol/L (136-145) Potassium Level 4.3mmol/L (3.5-5.1) Chloride Level 109mmol/L (98-107) H Carbon Dioxide Level 26mmol/L (21-32) Anion Gap 9 (6-14) Blood Urea Nitrogen 11mg/dL (7-20) Creatinine 0.6mg/dL (0.6-1.0) Estimated GFR (Cockcroft-Gault) 115.2 Glucose Level 97mg/dL (70-99) Calcium Level 9.2mg/dL (8.5-10.1) Urine Collection Type U cath Urine Color Yellow Urine Clarity Clear Urine pH 7.5 Urine Specific Weed 1.010 Urine Protein Negativemg/dL (NEG-TRACE) Urine Glucose (UA) Negativemg/dL (NEG) Urine Ketones (Stick) Negativemg/dL (NEG) Urine Blood Moderate (NEG) Urine Nitrite Negative (NEG) Urine Bilirubin Negative (NEG) Urine Urobilinogen Dipstick 1.0mg/dL (0.2 mg/dL) Urine Leukocyte Esterase Negative (NEG) Urine RBC 11-20/HPF (0-2) Urine WBC 0/HPF (0-4) Urine Squamous Epithelial Cells Many/LPF Urine Bacteria 0/HPF (0-FEW) Urine Mucus Slight/LPF Laboratory Tests 02/10/17 13:40 Laboratory Tests 02/10/17 13:40 Course & Med Decision Making Course & Med Decision Making Pertinent Labs and Imaging studies reviewed. (See chart for details) Labs are unremarkable. She was fed in the emergency department by her son with no emesis. Discussed case with Dr. Lock, who agrees with transport back to nursing facility. Return precautions given. Son understands and agrees with plan. Dragon Disclaimer Dragon Disclaimer This electronic medical record was generated, in whole or in part, using a voice recognition dictation system. Departure Departure Impression: Primary Impression: Vomiting Disposition: HOME, SELF-CARE Condition: STABLE Referrals: VICK LOCK MD (PCP) Patient Instructions: Nausea and Vomiting, [id number] Additional Instructions: Follow-up with your primary care doctor. Return for any concerns. Problem Qualifiers Primary Impression: Vomiting Vomiting type: unspecified Vomiting Intractability: non-intractable Nausea presence: unspecified Qualified Code: R11.10 - Vomiting, unspecified Dustin VILLALPANDO MD Feb 10, 2017 18:34
[2017-02-10 19:30] VITALS: BP 114/63
== END 2017-02-10 20:20 | disposition home or self-care (01) ==
LOC: ER 13:24
DX: R11.10 Vomiting, unspecified (principal); K21.9 Gastro-esophageal reflux disease without esophagitis; Z86.2 Personal history of diseases of the blood and blood-forming organs and certain disorders involving the immune mechanism; G89.29 Other chronic pain; F03.90 Unspecified dementia, unspecified severity, without behavioral disturbance, psychotic disturbance, mood disturbance, and anxiety; Z96.642 Presence of left artificial hip joint; Z87.440 Personal history of urinary (tract) infections; Z88.0 Allergy status to penicillin
CPT/HCPCS: 36415; 80048; 81001; 85027; 99284

== ENCOUNTER 2018-07-17 01:37 | Emergency (ER) | payer MEDICARE ==
[~2018-07-17] VITALS: Ht 157.5 cm; Wt 56.2 kg
[~2018-07-17 01:37] MED LIST changes: +POLY17PO29 PO; -POLY17PO5 PO
--- NOTE | 2018-07-17 02:02 | PHYS DOC ---
Past Medical History Past Medical History: Constipation, Dementia, GERD, Sickle Cell Disease, UTI, Other Additional Past Medical Histor: Shingles, CHRONIC PAIN, FTT, LYMPHEDEMA Past Surgical History: Hip Replacement, Other Additional Past Surgical Histo: Eye sx, gallstones, LT HIP FX Alcohol Use: None Drug Use: None Adult General Chief Complaint Chief Complaint: LOWER EXTREMITY SWELLING HPI HPI Patient is a 88 year old [f__sex] who presents with [] Review of Systems Review of Systems Constitutional: Denies fever or chills [] Eyes: Denies change in visual acuity, redness, or eye pain [] HENT: Denies nasal congestion or sore throat [] Respiratory: Denies cough or shortness of breath [] Cardiovascular: No additional information not addressed in HPI [] GI: Denies abdominal pain, nausea, vomiting, bloody stools or diarrhea [] : Denies dysuria or hematuria [] Musculoskeletal: Denies back pain or joint pain [] Integument: Denies rash or skin lesions [] Neurologic: Denies headache, focal weakness or sensory changes [] Endocrine: Denies polyuria or polydipsia [] All other systems were reviewed and found to be within normal limits, except as documented in this note. Allergies Allergies Allergies Coded Allergies Type Severity Reaction Last Updated Verified Penicillins Allergy Intermediate Rash 01/30/16 Yes Physical Exam Physical Exam Constitutional: Well developed, well nourished, no acute distress, non-toxic appearance. [] HENT: Normocephalic, atraumatic, bilateral external ears normal, oropharynx moist, no oral exudates, nose normal. [] Eyes: PERRLA, EOMI, conjunctiva normal, no discharge. [] Neck: Normal range of motion, no tenderness, supple, no stridor. [] Cardiovascular:Heart rate regular rhythm, no murmur [] Lungs & Thorax: Bilateral breath sounds clear to auscultation [] Abdomen: Bowel sounds normal, soft, no tenderness, no masses, no pulsatile masses. [] Skin: Warm, dry, no erythema, no rash. [] Back: No tenderness, no CVA tenderness. [] Extremities: No tenderness, no cyanosis, no clubbing, ROM intact, no edema. [] Neurologic: Alert and oriented X 3, normal motor function, normal sensory function, no focal deficits noted. [] Psychologic: Affect normal, judgement normal, mood normal. [] EKG EKG [] Radiology/Procedures Radiology/Procedures [] Course & Med Decision Making Course & Med Decision Making Pertinent Labs and Imaging studies reviewed. (See chart for details) [] Dragon Disclaimer Dragon Disclaimer This electronic medical record was generated, in whole or in part, using a voice recognition dictation system. Departure Departure Impression: Primary Impression: Acute DVT (deep venous thrombosis) Disposition: 03 TRANSFER SNF Condition: STABLE Referrals: VICK KEYS MD (PCP) Patient Instructions: Deep Vein Thrombosis Additional Instructions: You have been provided your dose of Xarelto 15mg x 1 Problem Qualifiers Primary Impression: Acute DVT (deep venous thrombosis) DVT location: lower extremity Affected thrombotic vein of extremity: unspecified vein of extremity Laterality: left Qualified Codes: I82.402 - Acute embolism and thrombosis of unspecified deep veins of left lower extremity JEIMY MONIQUE DO Jul 17, 2018 02:02
[2018-07-17] MEDS ORDERED: RIVAROXABAN 15 MG TABLET. PO ONE (02:30)
[2018-07-17 02:45] VITALS: BP 133/66
== END 2018-07-17 02:53 ==
LOC: ER 01:37
DX: I82.402 Acute embolism and thrombosis of unspecified deep veins of left lower extremity (principal); K21.9 Gastro-esophageal reflux disease without esophagitis; G89.29 Other chronic pain; F03.90 Unspecified dementia, unspecified severity, without behavioral disturbance, psychotic disturbance, mood disturbance, and anxiety; Z87.440 Personal history of urinary (tract) infections; Z86.2 Personal history of diseases of the blood and blood-forming organs and certain disorders involving the immune mechanism; Z88.0 Allergy status to penicillin
CPT/HCPCS: 99284